=== PATIENT | female | born 1995 | race Caucasian/White ===

== ENCOUNTER 2021-08-13 17:24 | Emergency (ER) | payer OTHER ==
[~2021-08-13] VITALS: Ht 160 cm; Wt 83.5 kg
[2021-08-13 17:41] VITALS: BP 126/83
--- NOTE | 2021-08-13 18:26 | NUR ---
25 Y/O F AMBULATED TO BED 1 WITH STEADY GAIT, C/O R UNDERARM ABSCESS X 3 DAYS, NO DRAINAGE, SEEN AT URGENT [facility]ARE YESTERDAY, RECEIVED ANTIBIOTECS BUT STILL HAS NO RELEIF. NO FEVER, NO NVD, NO ONE SICK AT HOME. MEDHX: DENIES ALLERGIES: NKDA
[2021-08-13] MEDS ORDERED: LIDOCAINE MPF 1% 10 MG/ML VIAL INJ ONE (19:00)
[2021-08-13] MEDS ORDERED: CEPH-588 PO (19:16)
[2021-08-13] MEDS ORDERED: ACET-10509 PO (19:16)
--- NOTE | 2021-08-13 19:23 | NUR ---
Pt report given to LILIANA CRISTOBAL. Transfer of care at this time.
[2021-08-13 19:31] VITALS: BP 127/83
--- NOTE | 2021-08-13 19:31 | NUR ---
Patient discharged with v/s stable. Written and verbal after care instructions given and explained. Patient alert, oriented and verbalized understanding of instructions. Ambulatory with steady gait. All questions addressed prior to discharge. ID band removed. Patient advised to follow up with PMD. Rx of tylenol extra strenth tab and keflex given. Patient educated on indication of medication including possible reaction and side effects. Opportunity to ask questions provided and answered.
== END 2021-08-13 19:31 | disposition home or self-care (01) ==
LOC: MED 17:24
DX: L02.411 Cutaneous abscess of right axilla (principal); Z79.899 Other long term (current) drug therapy
CPT/HCPCS: 10060; 99283; J2001